=== PATIENT | female | born 1970 | race Caucasian/White ===

== ENCOUNTER 2020-08-22 13:50 | Emergency (ER) | payer SELFPAY ==
[~2020-08-22] VITALS: Ht 162.6 cm; Wt 49.9 kg
== END 2020-08-22 14:40 ==
LOC: ER 13:50
DX: Z02.89 Encounter for other administrative examinations (principal); F10.10 Alcohol abuse, uncomplicated; Z04.1 Encounter for examination and observation following transport accident; R45.851 Suicidal ideations
CPT/HCPCS: 99285